=== PATIENT | male | born 1975 | race Caucasian/White ===

== ENCOUNTER → 2018-08-11 15:10 | Outpatient (CLI) | payer OTHER, SELFPAY ==
[2018-08-11 17:33] LABS: Absolute Lymphocyte Count 1.32 X10^3/ul (0.83-4.51); Absolute Neutrophil Count 2.7 X10^3/uL (2.0-7.7); Basophil# 0.02 X10^3/uL; Basophil% 0.4 % (0-1); Eosinophil# 0.09 X10^3/uL; Eosinophils% 1.9 % (0-5); Hematocrit 41.6 % (40-54); Hemoglobin 14.3 g/dl (13.0-16.5); Lymphocyte # 1.32 X10^3/ul (4.0); Lymphocyte % 27.8 % (19-41); Mean Corp Hgb Conc 34.4 g/gl (32-36); Mean Corpuscular Hgb 29.9 pg (27.0-32.0); Mean Corpuscular Volume 86.8 fL (80-94); Mean Platelet Vol. 10.5 fl (6.2-12.0); Monocyte% 12.6 % (0-10); Neutrophil # 2.72 X10^3/uL (2.7-7.7); Neutrophil % 57.3 % (47-70); Platelet Count 204 K/mm3 (150-450); RBC Distribution Width CV 12.6 % (11.6-14.6); RBC Distribution Width SD 40.5 fl (35.1-43.9); Red Blood Count 4.79 M/mm3 (4.6-6.2); White Blood Count 4.8 K/mm3 (4.4-11.0)
[2018-08-11 17:36] LABS: POSITIVE COUNT NO; POSITIVE DIFFERENTIAL NO; POSITIVE MORPHOLOGY NO
== END ==
PROVIDERS: Family Provider Family Medicine; PCP Family Medicine; Visit Provider Nurse Practitioner Family
DX: N50.811 Right testicular pain (principal)
CPT/HCPCS: 36415; 85025

== ENCOUNTER → 2018-08-15 14:05 | Outpatient (CLI) | payer OTHER, SELFPAY ==
--- NOTE | 2018-08-15 14:09 | US_ITS ---
STUDY: SCROTUM ULTRASOUND REASON FOR EXAM: Male, 43 years old. Right testicular pain TECHNIQUE: Ultrasound evaluation of the scrotum was performed with color Doppler and static ferris-scale imaging. COMPARISON: None. FINDINGS: RIGHT TESTICLE INTRATESTICULAR: There is a normal size of the right testicle. The right testicle measures 4.6 x 3.5 x 2.7 cm. There is a homogenous echotexture. There is normal arterial and normal venous vascularity. There is 0.4 x 0.4 x 0.3 cm simple appearing right testicular cyst. EXTRATESTICULAR: The epididymis is normal in size. The epididymis head measures 1.1 x 1.8 x 1 cm. There is normal vascularity of the epididymis. There is no demonstrated epididymal cystic structure. There is no demonstrated hydrocele. There is no demonstrated varicocele. There is no demonstrated extratesticular mass or cyst. Scrotal wall 0.5 cm. LEFT TESTICLE INTRATESTICULAR: There is a decreased size of the left testicle. Slightly lobular in contour. The left testicle measures 3.9 x 2.1 x 1.8 cm. There is a heterogeneous echotexture. There is normal arterial and normal venous vascularity. There is no demonstrated left testicular mass or cyst. EXTRATESTICULAR: The epididymis is not visualized. There is no demonstrated hydrocele. There is no demonstrated varicocele. There is no demonstrated extratesticular mass or cyst. US/Testicular with Arterial Flow IMPRESSION: Normal right testis allowing for a simple appearing 0.4 cm cyst. Normal right epididymis. Small-sized heterogeneous lobular contour left testes without torsion. Left epididymis is not visualized. Patient stated that he had surgical removal at age 13 or 14 with testes put back in for a static recent. Electronically Signed: Razia Irizarry MD at 7:27 EDT , Service support ,
== END ==
PROVIDERS: Family Provider Family Medicine; PCP Family Medicine; Referring Provider Nurse Practitioner Family; Visit Provider Nurse Practitioner Family
DX: N50.811 Right testicular pain (principal)
CPT/HCPCS: 76870; 93976

== ENCOUNTER → 2019-11-11 08:06 | Outpatient (CLI) | payer OTHER, SELFPAY ==
[2019-09-03 08:54] VITALS: BMI 32.3
[2019-11-11 10:25] LABS: AST(SGOT) 17 U/L (15-37); Alanine Aminotransfer ALT/SGPT 38 U/L (16-61); Albumin, Serum 3.7 g/dL (3.2-5.0); Alkaline Phosphatase 97 U/L (45-117); Anion Gap 6 (5-15); BUN 14 mg/dL (7-18); BUN/Creat Ratio 14.4 RATIO (10-20); Bilirubin, Direct 0.14 mg/dL (0.00-0.30); Calcium,Total 8.6 mg/dL (8.5-10.1); Chloride 106 mmol/L (98-107); Cholesterol 186 mg/dL (200); Creatinine, Serum 0.97 mg/dL (0.70-1.30); EST Glomerular Filtration Rate 88 mL/min (>60); Est Glom Filt Rate - Afr Amer 106 mL/min (>60); Globulin 3.5 g/dL (2.2-4.2); Glucose 93 mg/dL (74-106); High Density Lipoprotein 54 mg/dL; Potassium 3.9 mmol/L (3.5-5.1); Protein, Total 7.2 g/dL (6.4-8.2); Sodium Level 140 mmol/L (136-145); Triglycerides 156 mg/dL; Very Low Density Lipoprotein 31 mg/dL (5-40)
== END ==
PROVIDERS: Family Provider Family Medicine; PCP Family Medicine; Referring Provider Family Medicine; Visit Provider Family Medicine
DX: Z13.220 Encounter for screening for lipoid disorders (principal); Z78.9 Other specified health status; Z13.1 Encounter for screening for diabetes mellitus
CPT/HCPCS: 36415; 80048; 80061; 80076

== ENCOUNTER → 2020-07-04 11:51 | Outpatient (CLI) | payer OTHER, SELFPAY ==
[2019-09-03 08:54] VITALS: BMI 32.3
[2020-07-04 15:23] LABS: Hematocrit 42.9 % (40-54); Hemoglobin 14.6 g/dL (13.0-16.5); Mean Corpuscular Hgb 30.2 pg (27.0-32.0); Mean Corpuscular Volume 88.6 fL (80-94); Mean Platelet Vol. 10.5 fl (6.2-12.0); Platelet Count 247 K/mm3 (150-450); RBC Distribution Width CV 12.2 % (11.6-14.6); RBC Distribution Width SD 39.2 fl (35.1-43.9); Red Blood Count 4.84 M/mm3 (4.6-6.2); White Blood Count 4.8 K/mm3 (4.4-11.0)
[2020-07-04 15:43] LABS: Vitamin D,25 Hydroxy 40.3 ng/mL
[2020-07-04 15:44] LABS: Free T3 2.8 pg/mL (2.18-3.98); Iron 104 ug/dL (65-175); T4 Free Direct 0.98 ng/dL (0.76-1.46); Thyroid Stim Hormone (TSH) 1.01 uIU/mL (0.358-3.74)
[2020-07-07 06:25] LABS: Zinc, Plasma or Serum 80 ug/dL (56-134)
== END ==
PROVIDERS: PCP Family Medicine; Referring Provider Family Medicine; Visit Provider Family Medicine
DX: L65.9 Nonscarring hair loss, unspecified (principal)
CPT/HCPCS: 36415; 82306; 83540; 84439; 84443; 84481; 84630; 85027

== ENCOUNTER 2021-03-03 16:00 | Outpatient (RCR) | payer OTHER, SELFPAY ==
[2019-09-03 08:54] VITALS: BMI 32.3
--- NOTE | 2021-02-13 10:00 | HP.PTEVAL_ITS ---
Patient's Visit Information PATSY PIMENTEL is a 45 year old M referred to Physical Therapy by Dr. Nagi Silva MD with a diagnosis of L medial calf strain at musculotendon junction. Date of Evaluation: 02/13/21 Physical Therapist: Deion Muhammad DPT - Visit Plan Frequency: 1x/Week Duration: 4-6 Weeks Plan: STart with inhibition/foll rolling, DN and stretching to G/S and post tib complex. Add in eccentric strengthening to increase tensial strength of achilles and post tib tendon. - Subjective Pt. is here today for his initial evaluation with diagnosis of L medial calf strain at muscle- tendo junction. He reports hurting potential skiing, but not sure. Pt. reports having intemittent pain with walking. No consistent pattern. Pt. denies N/T. Pt. no brusing. No cisse currently. Pt. reports trying to stretch, but really stretched and then was very painful. Pt. is not very active and this might atribute to his problem. Desk job mostly, working from home. Pt. is hopeful to reduce symptoms in order to get back to all walking and recreational activities without limitations. - Pain L calf Pain Intensity (Out of 10): 0 Pain Intensity Range: 0, 4 - Objective POSTURE: Pt. has normal stance. He does have increased hypertrophy throughout both calves. PALPATION: Pt. has tender at medial calf near musculotendon junction. No pain with rest of calf/palpation. Pt. has increased muscle tone noted at medial calf and post tib msucle belly. NEURO: Pt. has normal DTR and normal sensation of BLEs. Pt. is able to rise on heels and toes withotu issues. ROM: Pt. has normal ankle and knee ROM, except DF 11deg on R 8deg on L. TIghtness in B HS as well. MMT: 5/5 strength throughout BLEs without increase in symptoms. GAIT: Pt. has normal gait pattern, except increased aquinus foot on L resulting in WBing at lateral foot. STAIRS: Normal without isues. - Goals Goal 1:: LTG: Pt. to be I with all HEP. Goal Time Frame: 4-6 Weeks Goal 2:: LTG: Pt. to be able to walk recreationally for unlimited distances without increase in symptoms. Goal Time Frame: 4-6 Weeks Goal 3:: LTG: pt. to have decreased muscle tenson in his L calf Goal Time Frame: 4-6 Weeks Goal 4:: LTG: Pt. to get back to all recreation alactivities without limitaitons. Goal Time Frame: 4-6 Weeks - Rehabilitation Potential Physical Therapy Diagnosis: Pt. has signs and symptoms consistent with L medial calf strain at musculotendon junction. Pt. has tightness in his calf and increased muscle tone at medial calf. Pt. would benefit from PT to decrease muscle tension and increae tissue length then progress to gradually increasing tension at his tendon in order to get back to all recreational activities wit hout limitations. Rehabilitation Potential: Excellent - Anticipated Interventions Patient/Client Instruction: Educate patient on: Condition, Plan of Care, Risk Factors, Benefits of Fitness Program For the Purpose of:: To improve decision making, To facilitate caregiver knowledge, To improve self management, To prevent re-injury, To improve ability to perform tasks related to life management, To improve tolerance to ADL's Therapeutic Exercise to Include: Strength training, Power training, Body mechanics, Postural training, Flexibilty training, Gait and locomotor training, Passive ROM, Active ROM For the Purpose of:: To decrease pain, To decrease swelling/inflammation, To increase ROM, To improve nutrient delivery to tissue, To increase oxygenation perfusion, To improve muscle performance and motor function Manual Therapy Techniques to Include: Mobilization, Passive ROM, Functional dry needling, Soft tissue mobilization For the Purpose of:: To decrease pain, To improve nutrient delivery to tissue Ultrasound (thermal/non thermal): Yes For the Purpose of:: To decrease pain, To decrease swelling/inflammation, To increase ROM, To improve nutrient delivery to tissue, To increase oxygenation perfusion Thank you for the opportunity to evaluate your patient. For Medicare and Medicare HMO plans, please review the plan of care and approve it. It will need to be FAXED BACK to us at [phone] for Medicare purposes. For Medicare only, by signing this I certify the plan of care. Please let me know if there are questions or concerns regarding this plan of care. Physician Signature: Date:
== END 2021-03-03 19:00 | disposition home or self-care (01) ==
LOC: PT 16:00
PROVIDERS: PCP Family Medicine; Referring Provider Family Medicine; Visit Provider Family Medicine
DX: S86.912D Strain of unspecified muscle(s) and tendon(s) at lower leg level, left leg, subsequent encounter (principal)
CPT/HCPCS: 97110; 97161

== ENCOUNTER → 2023-05-09 | Outpatient (CLI) | payer OTHER, SELFPAY ==
[2023-05-09 12:12] LABS: Hematocrit 42.8 % (40-54); Hemoglobin 14.3 g/dL (13.0-16.5); Mean Corp Hgb Conc 33.4 g/dL (32-36); Mean Corpuscular Hgb 30.5 pg (27.0-32.0); Mean Corpuscular Volume 91.3 fL (80-94); Mean Platelet Vol. 10.6 fl (6.2-12.0); Platelet Count 232 K/mm3 (150-450); RBC Distribution Width CV 12.4 % (11.6-14.6); RBC Distribution Width SD 40.9 fl (35.1-43.9); Red Blood Count 4.69 M/mm3 (4.6-6.2); White Blood Count 4.3 K/mm3 (4.4-11.0)
[2023-05-09 13:49] LABS: Anion Gap 9 (5-15); BUN 11 mg/dL (7-18); BUN/Creat Ratio 10.6 RATIO (10-20); Calcium,Total 8.9 mg/dL (8.5-10.1); Chloride 107 mmol/L (98-107); Cholesterol 174 mg/dL (200); Creatinine, Serum 1.04 mg/dL (0.70-1.30); EST Glomerular Filtration Rate 80 mL/min (>60); Est Glom Filt Rate - Afr Amer 97 mL/min (>60); Glucose 95 mg/dL (74-106); High Density Lipoprotein 52 mg/dL; PSA,Total - Annual Screen 1.19 ng/mL (0.00-4.00); Potassium 4.1 mmol/L (3.5-5.1); Sodium Level 140 mmol/L (136-145); Thyroid Stim Hormone (TSH) 0.76 uIU/mL (0.358-3.74); Triglycerides 116 mg/dL; Very Low Density Lipoprotein 23 mg/dL (5-40)
== END | disposition home or self-care (01) ==
LOC: MFPLAB 09:37
PROVIDERS: PCP Family Medicine; Visit Provider Family Medicine
DX: Z13.1 Encounter for screening for diabetes mellitus (principal); R53.83 Other fatigue; Z12.5 Encounter for screening for malignant neoplasm of prostate; Z13.220 Encounter for screening for lipoid disorders
CPT/HCPCS: 36415; 80048; 80061; 84153; 84403; 84443; 85027; G0103

== ENCOUNTER → 2025-03-30 | Outpatient (CLI) | payer OTHER, SELFPAY ==
[2025-03-30 10:38] LABS: Anion Gap 11 (5-15); BUN 19 mg/dL (4-19); BUN/Creat Ratio 20.8 RATIO (10-20); Calcium,Total 8.7 mg/dL (7.6-11.0); Carbon Dioxide 22.4 mmol/L (21.0-32.0); Chloride 104 mmol/L (98-108); Cholesterol 152 mg/dL (<=200); Creatinine, Serum 0.93 mg/dL (0.70-1.20); EST Glomerular Filtration Rate 99 (>60); Glucose 99 mg/dL (70-99); High Density Lipoprotein 44 mg/dL; Low Density Lipoprotein Calc. 90 mg/dL; PSA,Total - Annual Screen 0.98 ng/mL (0.02-4.00); Potassium 4.2 mmol/L (3.3-5.1); Sodium Level 137 mmol/L (133-145); Triglycerides 87 mg/dL; Very Low Density Lipoprotein 17 mg/dL (5-40); cholesterol:hdl ratio screen 3.42
== END | disposition home or self-care (01) ==
LOC: MTLAB 07:21
PROVIDERS: PCP Family Medicine; Referring Provider Family Medicine; Visit Provider Family Medicine
DX: Z13.1 Encounter for screening for diabetes mellitus (principal); Z12.5 Encounter for screening for malignant neoplasm of prostate; Z13.220 Encounter for screening for lipoid disorders
CPT/HCPCS: 36415; 80048; 80061; 84153; G0103